=== PATIENT | female | born 1985 | race African-American/Black ===

== ENCOUNTER 2021-02-27 08:21 | Emergency (ER) | payer OTHER ==
[2021-02-27] MEDS ORDERED: Ketorolac Tromethamine 30 MG/ML VIAL ONE (08:51)
== END 2021-02-27 10:04 | disposition home or self-care (01) ==
LOC: ERS 08:21
DX: S40.212A Abrasion of left shoulder, initial encounter (principal); Z79.899 Other long term (current) drug therapy; V89.2XXA Person injured in unspecified motor-vehicle accident, traffic, initial encounter
CPT/HCPCS: 71045; 96372; J1885